=== PATIENT | female | born 1960 | race Two or more races ===

== ENCOUNTER 2018-09-14 16:25 | Emergency (ER) | payer MEDICARE ==
[~2018-09-14] VITALS: Ht 167.6 cm; Wt 81.6 kg
[~2018-09-14 16:25] MED LIST: CHL4PW PO; ENO40SY SC; FENT25DI2 TD; FENT50DI2 TD; FERR1TAB12 PO; HYDR4TAB21 PO; LEVO100T8 PO; PANT40TA2 PO; QUE100T PO; SUCR1SUS10 PO; SULF500T37 PO; TRAZ50T PO; VALS160T43 PO; VENL150C2 PO; [UNRECOGNIZED DRUG - CODE] PO
[2018-09-14 17:09] LABS: Hemoglobin 9.6 g/dL (12.2-16.2)
[2018-09-14 17:12] LABS: Mean Corpuscular Hemoglobin 24.1 pg (28.0-32.0); Mean Corpuscular Hgb Conc. 30.1 g/dL (32.0-36.0); Mean Corpuscular Volume 80.1 fL (80.0-100.0); Platelet Count (auto) 253 10^3/uL (140-450); Red Blood Cells 3.99 10^6/uL (4.0-5.20)
[2018-09-14 17:28] LABS: Albumin 3.8 g/dL (3.4-5.0); Calcium 8.6 mg/dL (8.5-10.1); Potassium 4.4 mmol/L (3.5-5.1)
[2018-09-14 17:30] LABS: BUN/Creatinine Ratio 11.1; Bilirubin, Total 1.4 mg/dL (0.2-1.0); Total Protein 8.2 g/dL (6.4-8.2)
[2018-09-14 17:32] LABS: Red Cell Distribution Width 26.8 % (11.8-14.3)
[2018-09-14 17:33] LABS: Band Neutrophils % (manual) 0; Basophils % (manual) 0 (0.0-2.0); Blast Cells 0; Eosinophils % (manual) 0 (0-7); Metamyelocytes % 0; Myelocytes % 0; Promyelocytes % 0; Reactive Lymphocytes 0
[2018-09-14] MEDS ORDERED: SODIUM CHLORIDE 0.9% 1,000 ML IV ONE ×2 (17:35)
[2018-09-14 17:38] LABS: Lymphocytes % (manual) 28 (10.0-50.0); Monocytes % (manual) 9 (0-12)
[2018-09-14] MEDS ORDERED: THIAMINE 100mg/ml INJ (200mg/2ml VIAL) IV ONE (17:45)
[2018-09-14] MEDS ORDERED: chlordiazePOXIDE HCL 5 MG CAP PO ONE (19:30)
[2018-09-15] MEDS ORDERED: LORazepam 0.5 MG TAB PO ONE ×2 (01:15→21:30)
[2018-09-15] MEDS ORDERED: chlordiazePOXIDE HCL 25 MG CAP PO SCH ×2 (07:45→10:00)
[2018-09-15] MEDS: OLANZapine 5 MG TAB PO PRN ×2 (08:06→14:40)
[2018-09-15] MEDS ORDERED: PANTOPRAZOLE 40 MG TAB PO ONE (09:45)
[2018-09-15] MEDS ORDERED: IBUPROFEN 600 MG TAB PO ONE (09:45)
[2018-09-15 15:55] LABS: Alcohol, Urine < 3.0 mg/dL (0-5); Amphetamine Screen, Urine NEGATIVE (NEGATIVE); Barbiturate Scree,Urine NEGATIVE (NEGATIVE); Benzodiazephine Screen, Urine NEGATIVE (NEGATIVE); Cannabinoid Screen, Urine NEGATIVE (NEGATIVE); Cocaine Screen, Urine NEGATIVE (NEGATIVE); Opiate Scree,Urine NEGATIVE (NEGATIVE); Phencyclidine Screen, Urine NEGATIVE (NEGATIVE)
[2018-09-15 15:56] LABS: Urine Bacteria FEW /hpf (None Seen); Urine Blood Negative /uL (Negative); Urine Specific Gravity 1.006 (1.001-1.035); Urine WBC 16 /hpf (0 - 5)
[2018-09-16 06:55] VITALS: BP 142/59
[2018-09-16] MEDS ORDERED: chlordiazePOXIDE HCL 25 MG CAP PO SCH (10:00)
[2018-09-17] MEDS ORDERED: chlordiazePOXIDE HCL 25 MG CAP PO SCH (10:00)
[2018-09-18] MEDS ORDERED: chlordiazePOXIDE HCL 25 MG CAP PO SCH (07:00)
== END 2018-09-16 07:07 | disposition short-term general hospital (02) ==
LOC: EDBD 16:25 → ER 16:31 → MERGE 16:31 → ER 09-16 07:07
DX: F10.129 Alcohol abuse with intoxication, unspecified (principal); F41.9 Anxiety disorder, unspecified; F32.9 Major depressive disorder, single episode, unspecified; E11.9 Type 2 diabetes mellitus without complications; I10 Essential (primary) hypertension; Y90.8 Blood alcohol level of 240 mg/100 ml or more
CPT/HCPCS: 36415; 71045; 80053; 80307; 80320; 81001; 82962; 85007; 85027; 96374; 99284; J3411; J7030

== ENCOUNTER 2018-12-01 22:55 | Inpatient (IN) | payer MEDICARE ==
[~2018-12-01] VITALS: Ht 170.2 cm; Wt 110.2 kg
[2018-12-01] MEDS ORDERED: NOREPINEPHRINE 8 MG/250ML KIT 250 ML IV ONE (23:31)
[2018-12-01 23:48] LABS: Basophils # (auto) 0 uL; Basophils % (auto) 0.1 % (0.0-2.0); Eosinophils # (auto) 0 uL; Hematocrit 25.9 % (36.0-46.0); Hemoglobin 8.5 g/dL (12.2-16.2); Lymphocytes # (auto) 0.3 uL; Lymphocytes % (auto) 1.7 % (10.0-50.0); Mean Corpuscular Hemoglobin 29.7 pg (28.0-32.0); Mean Corpuscular Hgb Conc. 32.8 g/dL (32.0-36.0); Mean Corpuscular Volume 90.6 fL (80.0-100.0); Monocytes # (auto) 0.2 uL; Monocytes % (auto) 0.9 % (0.0-12.0); Neutrophils # (auto) 19.4 uL; Neutrophils % (auto) 97.3 % (37.0-80.0); Platelet Count (auto) 281 10^3/uL (140-450); Red Blood Cells 2.86 10^6/uL (4.0-5.20)
[2018-12-01 23:49] LABS: Red Cell Distribution Width 25.7 % (11.8-14.3)
[2018-12-02 00:05] LABS: Albumin 2.3 g/dL (3.4-5.0); Amylase 73 U/L (25-115); Anion Gap 14 (5-15); Blood Urea Nitrogen 13 mg/dL (7-18); Carbon Dioxide 22 mmol/L (21-32); Chloride 103 mmol/L (98-107); GFR African American 24 mL/min; GFR Non-African American 20 mL/min; Glucose 90 mg/dL (74-106); Lipase 66 U/L (73-393); Sodium 139 mmol/L (136-145)
[2018-12-02 00:07] LABS: Potassium 2.3 mmol/L (3.5-5.1)
[2018-12-02 00:10] LABS: Alanine Aminotransferase 9 U/L (13-56); Alkaline Phosphatase 123 U/L (45-117); Aspartate Aminotransferase 13 U/L (15-37); Bilirubin, Total 0.7 mg/dL (0.2-1.0); Total Protein 6.5 g/dL (6.4-8.2)
[2018-12-02] MEDS ORDERED: NOREPINEPHRINE 8 MG/250ML KIT 250 ML IV SCH (00:30)
[2018-12-02] MEDS ORDERED: SODIUM CHLORIDE 0.9% 1,000 ML IV SCH ×2 (00:30→06:00)
[2018-12-02] MEDS ORDERED: POTASSIUM CHL 20 Meq TABLET PO ONE ×2 (00:30→02:00)
[2018-12-02 01:59] LABS: Urine Bacteria FEW /hpf (None Seen); Urine Blood Negative /uL (Negative); Urine Hyaline Cast MANY /lpf (0 - 2); Urine Specific Gravity 1.014 (1.001-1.035); Urine WBC 5 /hpf (0 - 5)
[2018-12-02] MEDS ORDERED: cefTRIAXone 1GM/50ML D5W 50 ML IV ONE (02:15)
[2018-12-02] MEDS ORDERED: SODIUM CHLORIDE 0.9% 2,300 ML IV ONE (02:15)
[2018-12-02] MEDS ORDERED: VANCOMYCIN 1GM/250ML 250 ML IV ONE (02:15)
[2018-12-02] MEDS ORDERED: ONDANSETRON HCL 4 MG/2 ML VIAL IV ONE (02:45)
[2018-12-02] MEDS ORDERED: HYDROmorphone HCL 2 MG/ML VL IV ONE (02:45)
[2018-12-02] MEDS: POTASSIUM CHL 20MEQ/100ML 100 ML IV SCH ×2 (03:04→04:52)
[2018-12-02] MEDS ORDERED: ONDANSETRON HCL 4 MG/2 ML VIAL IV PRN ×2 (05:15→13:15)
[2018-12-02] MEDS ORDERED: MORPHINE SULF INJ 2 MG/ML SYRINGE 1ML IV PRN (05:15)
[2018-12-02] MEDS ORDERED: VANCOMYCIN PER PHARMACY 0 MG IV SCH (05:15)
[2018-12-02] MEDS ORDERED: NITROGLYCERIN 0.4 MG SL TAB SL PRN (05:15)
[2018-12-02] MEDS ORDERED: TEMAZEPAM 15 MG CAP PO PRN (05:15)
[2018-12-02] MEDS ORDERED: ACETAMINOPHEN 325 MG TAB PO PRN (05:15)
[2018-12-02] MEDS ORDERED: ALBUMIN 5% 250 ML IV ONE (06:00)
[2018-12-02 06:27] LABS: INR 1.16 (0.9-1.15); Partial Thromboplastin Time 33.6 sec (23.64-32.05)
[2018-12-02 06:34] LABS: BUN/Creatinine Ratio 6.7; Calcium 6.1 mg/dL (8.5-10.1); Potassium 3.3 mmol/L (3.5-5.1)
[2018-12-02] MEDS: LEVOTHYROXINE SODIUM 100 MCG TAB PO SCH (06:53)
[2018-12-02] MEDS: PIPERACILLIN-TAZOB 2.25GM 50 ML IV SCH ×4 (06:53→23:27)
[2018-12-02] MEDS: SODIUM CHLORIDE 0.9% 1,000 ML IV SCH (06:55)
[2018-12-02] MEDS ORDERED: HYDROcodone-ACET 5/325MG TAB PO ONE (08:30)
[2018-12-02] MEDS: PANTOPRAZOLE 40 MG TAB PO SCH (10:39)
[2018-12-02] MEDS: APIXABAN 5 MG TAB PO SCH ×2 (13:50→21:21)
--- NOTE | 2018-12-02 16:05 | NUR ---
Telemetry admit from ER DORIE MCKEON admitted to Telemetry unit after SBAR received. Patient oriented to Abril Mccarty, primary RN, unit, room, bed, and unit policies regarding patient care and visiting hours. Patient now on continuous telemetry monitoring, tele box # 69 and telemetry reading on arrival to unit is sinus rhythm at 89. Respirations are even and unlabored on RA. Patient weighed by bedscale and encouraged to call if they need something. Bed locked in lowest position, side rails up x2, call light within reach. Mercado freely draining to gravity. All questions and concerns addressed, patient verbalized understanding.
[2018-12-02] MEDS: HYDROmorphone HCL 2 MG/ML VL IV PRN ×2 (16:12→22:43)
[2018-12-02] MEDS ORDERED: LORA1TAB12 PO (16:37)
[2018-12-02] MEDS ORDERED: APIX5TAB PO (16:37)
[2018-12-02] MEDS ORDERED: FAM20T PO (16:37)
[2018-12-02] MEDS ORDERED: FOLITAB22 PO (16:37)
[2018-12-02] MEDS ORDERED: VENL-192 PO (16:37)
[2018-12-02] MEDS ORDERED: QUET200T30 PO (16:37)
[2018-12-02] MEDS ORDERED: THIA100T10 PO (16:37)
[2018-12-02] MEDS ORDERED: LEVO500T21 PO (16:37)
--- NOTE | 2018-12-02 17:00 | NUR ---
Patient provided with toilet hat and specimen cup for stool sample, instructed to call once sample is collected, patient verbalized understanding.
[2018-12-02 17:16] VITALS: BP 128/69
[2018-12-02 17:32] VITALS: BP 125/63
--- NOTE | 2018-12-02 18:36 | NUR ---
PATIENT ROUNDS PATIENT RESTING IN BED WATCHING TELEVISION, NO S/S OF DISTRESS. NO PAIN NOTED AT THIS TIME. CARE WILL BE ENDORSED TO ACCOUNT SUPPORT ANALYST RN.
--- NOTE | 2018-12-02 19:20 | NUR ---
Opening Shift Note Report received from day shift RN. Assumed care of patient. Patient awake and alert x4. No S/S of distress/SOB noted and denies pain at this time. Mercado in place, hung below bladder and draining freely. Dialysis access to right upper chest with dressing clean, dry, and intact. Bed locked and left in the lowest position, call light left within reach. Instructed on POC and to call for assist PRN, will continue to monitor for changes Q1hr and PRN.
[2018-12-02] MEDS ORDERED: APIXABAN 5 MG TAB PO SCH (22:00)
[2018-12-02 22:16] VITALS: BP 104/56
[2018-12-03] VITALS (18 sets, daily range): BP systolic 94–155; BP diastolic 44–86
[2018-12-03] MEDS: SODIUM CHLORIDE 0.9% 1,000 ML IV SCH ×2 (01:00→17:20)
[2018-12-03] MEDS: HYDROmorphone HCL 2 MG/ML VL IV PRN ×3 (05:39→20:33)
[2018-12-03] MEDS: LEVOTHYROXINE SODIUM 100 MCG TAB PO SCH (05:39)
[2018-12-03] MEDS: PIPERACILLIN-TAZOB 2.25GM 50 ML IV SCH ×3 (05:39→18:01)
[2018-12-03 06:33] LABS: Potassium 3.2 mmol/L (3.5-5.1)
[2018-12-03 06:34] LABS: Eosinophils # (auto) 0.1 uL; Mean Corpuscular Hemoglobin 30.9 pg (28.0-32.0); Monocytes # (auto) 0.5 uL; Red Blood Cells 2.17 10^6/uL (4.0-5.20)
[2018-12-03 06:44] LABS: Basophils # (auto) 0.1 uL; Basophils % (auto) 0.5 % (0.0-2.0); Hematocrit 19.7 % (36.0-46.0); Lymphocytes # (auto) 0.5 uL; Mean Corpuscular Volume 90.8 fL (80.0-100.0); Monocytes % (auto) 4.4 % (0.0-12.0); Neutrophils # (auto) 9.7 uL; Neutrophils % (auto) 89.1 % (37.0-80.0); Platelet Count (auto) 273 10^3/uL (140-450); White Blood Cell 10.8 10^3/uL (4.4-10.8)
[2018-12-03 06:45] LABS: Albumin 2.1 g/dL (3.4-5.0); Bilirubin, Total 0.5 mg/dL (0.2-1.0); Calcium 6.9 mg/dL (8.5-10.1); Total Protein 5.4 g/dL (6.4-8.2)
[2018-12-03 07:00] LABS: Hemoglobin 6.7 g/dL (12.2-16.2)
[2018-12-03 07:01] LABS: Red Cell Distribution Width 26.5 % (11.8-14.3)
--- NOTE | 2018-12-03 07:10 | NUR ---
PATIENT ADMITTED ON 12/02. MISSED SATURDAY DIALYSIS ON 12/02. HOSPITAL LIST PAGED FOR CRITICAL VALUE OF HEMOGLOBIN 7.1. AWAITING RETURN CALL
--- NOTE | 2018-12-03 07:18 | NUR ---
[facility] RETURNED PAGE AND CRITICAL VALUE OF HEMOGLOBIN 7.1 REPORTED. ORDERS RECEIVED TO REPEAT H AND H IN 4 HOURS
[2018-12-03] MEDS: PANTOPRAZOLE 40 MG TAB PO SCH (10:29)
[2018-12-03] MEDS: APIXABAN 5 MG TAB PO SCH ×2 (10:29→21:34)
[2018-12-03] MEDS ORDERED: VANCOMYCIN 1GM/250ML 250 ML IV ONE (15:00)
[2018-12-03] MEDS ORDERED: SODIUM CHL 0.9% 1000 ML BAG XX ONE (16:00)
--- NOTE | 2018-12-03 19:10 | NUR ---
Opening Shift Note Report received from day shift RN. Assumed care of patient. Patient awake and alert x4. No S/S of distress/SOB noted and denies pain at this time. Mercado in place, hung below bladder and draining freely. Dialysis nurse currently at bedside. Bed locked and left in the lowest position, call light left within reach. Instructed on POC and to call for assist PRN, will continue to monitor for changes Q1hr and PRN.
--- NOTE | 2018-12-03 19:12 | NUR ---
Dialysis complete Report received from dialysis nurse. 2 liters of fluid removed. Post treatment VS 126/69, Hr 103. Dressing to dialysis access on right upper chest clean, dry, and intact. Patient tolerated treatment well and no complaints per report.
[2018-12-03] MEDS ORDERED: EPOETIN ALFA 10,000 UNIT/1 ML VIAL SC ONE (21:00)
--- NOTE | 2018-12-03 22:35 | NUR ---
NEW IV INSERTION DURING BEGINNING OF BLOOD TRANSFUSION, IV WAS LEAKING. NEW IV STARTED, 22 GAUGE ON THE LEFT UPPER ARM. IV SECURED AND NO TRAUMA NOTED TO THE SITE. OLD IV REMOVED, CATHETER INTACT. PATIENT TOLERATED WELL.
[2018-12-04 00:27] VITALS: BP 114/57
[2018-12-04] MEDS: PIPERACILLIN-TAZOB 2.25GM 50 ML IV SCH ×2 (00:36→05:51)
--- NOTE | 2018-12-04 00:37 | NUR ---
BLOOD TRANSFUSION COMPLETE 1 UNIT RBCS TRANSFUSED. NO S/S OF SOB AND NO ADVERSE REACTIONS TO BLOOD PRODUCTS RECEIVED. PATIENT TOLERATED WELL.
[2018-12-04] MEDS: HYDROmorphone HCL 2 MG/ML VL IV PRN ×2 (04:15→12:03)
[2018-12-04 05:05] VITALS: BP 110/59
[2018-12-04] MEDS: LEVOTHYROXINE SODIUM 100 MCG TAB PO SCH (05:52)
[2018-12-04 06:00] LABS: Basophils # (auto) 0.1 uL; Basophils % (auto) 0.6 % (0.0-2.0); Eosinophils # (auto) 0.1 uL; Eosinophils % (auto) 0.8 % (0.0-7.0); Hematocrit 28.8 % (36.0-46.0); Hemoglobin 9.4 g/dL (12.2-16.2); Lymphocytes # (auto) 0.6 uL; Lymphocytes % (auto) 5.1 % (10.0-50.0); Mean Corpuscular Hemoglobin 29.5 pg (28.0-32.0); Mean Corpuscular Hgb Conc. 32.8 g/dL (32.0-36.0); Mean Corpuscular Volume 90.1 fL (80.0-100.0); Monocytes # (auto) 0.6 uL; Monocytes % (auto) 5.6 % (0.0-12.0); Neutrophils # (auto) 9.8 uL; Neutrophils % (auto) 87.9 % (37.0-80.0); Platelet Count (auto) 248 10^3/uL (140-450); White Blood Cell 11.1 10^3/uL (4.4-10.8)
[2018-12-04 06:30] LABS: Albumin 2.2 g/dL (3.4-5.0); BUN/Creatinine Ratio 3.5; Bilirubin, Total 1.9 mg/dL (0.2-1.0); Total Protein 6.2 g/dL (6.4-8.2)
[2018-12-04 08:00] VITALS: BP 110/59
--- NOTE | 2018-12-04 08:00 | NUR ---
PATIENT RECEIVED 2 UNITS OF PRBC'S ON 12/03/18. PATIENT HEMOGLOBIN 9.4 UP FROM 6.7. ALSO RECEIVED DIALYSIS WITH REMOVAL OF 2 LTRS.
[2018-12-04] MEDS: SODIUM CHLORIDE 0.9% 1,000 ML IV SCH (08:45)
[2018-12-04 08:49] VITALS: BP 110/59
[2018-12-04 09:00] VITALS: BP 129/66
[2018-12-04] MEDS ORDERED: POTASSIUM CHL 20 Meq TABLET PO ONE (09:15)
[2018-12-04] MEDS: APIXABAN 5 MG TAB PO SCH (09:42)
[2018-12-04] MEDS: PANTOPRAZOLE 40 MG TAB PO SCH (09:42)
[2018-12-04 13:00] VITALS: BP 138/74
--- NOTE | 2018-12-04 14:30 | NUR ---
PATIENT DISCHARGED HOME WITH FAMILY. ALL IV ACCESS DISCONTINUED. TELEMETRY BOX REMOVED AND RETURNED TO TELEMETRY DEPARTMENT. ALL DISCHARGE INSTRUCTIONS GIVEN. ALL DISCHARGE PAPERWORK SIGNED.
[2018-12-05] MEDS ORDERED: LEVOFLOXACIN 500 MG TAB PO SCH (10:00)
[2019-01-01] MEDS ORDERED: FLUC200T35 PO (15:15)
[2019-01-01] MEDS ORDERED: PANT40TA2 PO (15:15)
== END 2018-12-04 14:30 | disposition home or self-care (01) | DRG 871 ==
LOC: EDBD 22:55 → ER 22:58 → TELE 22:59 → TELE-WESTW 12-02 15:47
PROVIDERS: ADMIT Nurse Practitioner; ATTEND Family Medicine
PROC: 5A1D70Z Performance of Urinary Filtration, Intermittent, Less than 6 Hours Per Day (ICD-10-PCS; principal; 2018-12-03)
PROC: 30233N1 Transfusion of Nonautologous Red Blood Cells into Peripheral Vein, Percutaneous Approach (ICD-10-PCS; 2018-12-03)
DX: A41.9 Sepsis, unspecified organism (principal); N18.6 End stage renal disease; I13.2 Hypertensive heart and chronic kidney disease with heart failure and with stage 5 chronic kidney disease, or end stage renal disease; N39.0 Urinary tract infection, site not specified; E11.22 Type 2 diabetes mellitus with diabetic chronic kidney disease; E86.0 Dehydration; E87.6 Hypokalemia; J44.9 Chronic obstructive pulmonary disease, unspecified; K21.9 Gastro-esophageal reflux disease without esophagitis; F31.9 Bipolar disorder, unspecified; M43.16 Spondylolisthesis, lumbar region; E03.9 Hypothyroidism, unspecified; I95.9 Hypotension, unspecified; D63.8 Anemia in other chronic diseases classified elsewhere; K52.9 Noninfective gastroenteritis and colitis, unspecified; I50.9 Heart failure, unspecified; Z98.84 Bariatric surgery status; Z99.2 Dependence on renal dialysis; Z90.49 Acquired absence of other specified parts of digestive tract; Z86.711 Personal history of pulmonary embolism; Z87.442 Personal history of urinary calculi; Z90.710 Acquired absence of both cervix and uterus; Z85.528 Personal history of other malignant neoplasm of kidney; Z88.6 Allergy status to analgesic agent; Z88.1 Allergy status to other antibiotic agents; Z88.5 Allergy status to narcotic agent; Z88.2 Allergy status to sulfonamides; Z88.8 Allergy status to other drugs, medicaments and biological substances; Z90.12 Acquired absence of left breast and nipple; Z85.3 Personal history of malignant neoplasm of breast; Z90.5 Acquired absence of kidney; Z86.718 Personal history of other venous thrombosis and embolism; Z79.01 Long term (current) use of anticoagulants; Z82.3 Family history of stroke; Z82.49 Family history of ischemic heart disease and other diseases of the circulatory system
CPT/HCPCS: 36415; 36430; 71045; 74176; 80048; 80053; 80202; 80320; 81001; 82150; 83605; 83690; 84484; 84702; 85025; 85610; 85730; 86850; 86900; 86901; 86920; 87040; 87045; 87081; 87427; 87493; 90935; 93005; 96361; 96365; 96367; 96375; G0378; J0696; J0885; J1642; J2405; J2543; J3480

== ENCOUNTER 2018-12-17 05:35 | Inpatient (IN) | payer MEDICARE ==
[~2018-12-17] VITALS: Ht 157.5 cm; Wt 70.5 kg
[~2018-12-17 05:35] MED LIST changes: +APIX5TAB PO; +FAM20T PO; -FENT25DI2 TD; -FENT50DI2 TD; -FERR1TAB12 PO; +FOLITAB22 PO; -HYDR4TAB21 PO; -LEVO100T8 PO; +LEVO500T21 PO; +LORA1TAB12 PO; -QUE100T PO; +QUET200T30 PO; -SUCR1SUS10 PO; +THIA100T10 PO; -TRAZ50T PO; -VALS160T43 PO; +VENL-192 PO; -VENL150C2 PO; -[UNRECOGNIZED DRUG - CODE] PO
[2018-12-17 08:16] LABS: Urine Bacteria FEW /hpf (None Seen); Urine Blood Negative /uL (Negative); Urine Hyaline Cast MOD /lpf (0 - 2); Urine Specific Gravity 1.016 (1.001-1.035); Urine WBC 27 /hpf (0 - 5)
[2018-12-17 08:19] LABS: Basophils # (auto) 0 uL; Basophils % (auto) 0.2 % (0.0-2.0); Eosinophils # (auto) 0 uL; Lymphocytes # (auto) 0.4 uL
[2018-12-17 08:22] LABS: INR 1.04 (0.9-1.15); Partial Thromboplastin Time 29.9 sec (23.64-32.05)
[2018-12-17 08:28] LABS: Hematocrit 37.5 % (36.0-46.0); Hemoglobin 12.6 g/dL (12.2-16.2); Lymphocytes % (auto) 3.6 % (10.0-50.0); Mean Corpuscular Hemoglobin 32.5 pg (28.0-32.0); Mean Corpuscular Hgb Conc. 33.6 g/dL (32.0-36.0); Mean Corpuscular Volume 96.8 fL (80.0-100.0); Monocytes # (auto) 0.5 uL; Monocytes % (auto) 4.1 % (0.0-12.0); Neutrophils # (auto) 10.4 uL; Neutrophils % (auto) 92.1 % (37.0-80.0); Nucleated Red Blood Cells % 0.1 %; Platelet Count (auto) 249 10^3/uL (140-450); Red Blood Cells 3.87 10^6/uL (4.0-5.20); White Blood Cell 11.3 10^3/uL (4.4-10.8)
[2018-12-17 08:33] LABS: Alcohol, Urine < 3.0 mg/dL (0-5); Amphetamine Screen, Urine NEGATIVE (NEGATIVE); Barbiturate Scree,Urine NEGATIVE (NEGATIVE); Benzodiazephine Screen, Urine NEGATIVE (NEGATIVE); Cannabinoid Screen, Urine NEGATIVE (NEGATIVE); Cocaine Screen, Urine NEGATIVE (NEGATIVE); Opiate Scree,Urine NEGATIVE (NEGATIVE); Phencyclidine Screen, Urine NEGATIVE (NEGATIVE)
[2018-12-17 08:38] LABS: Chloride 103 mmol/L (98-107); Sodium 139 mmol/L (136-145)
[2018-12-17 08:47] LABS: Alanine Aminotransferase 11 U/L (13-56); Albumin 2.9 g/dL (3.4-5.0); Alkaline Phosphatase 115 U/L (45-117); Anion Gap 11 (5-15); Aspartate Aminotransferase 13 U/L (15-37); BUN/Creatinine Ratio 8.7; Bilirubin, Total 1.4 mg/dL (0.2-1.0); Blood Alcohol < 3.0 mg/dL (0-5); Blood Urea Nitrogen 12 mg/dL (7-18); Calcium 7.6 mg/dL (8.5-10.1); Carbon Dioxide 25 mmol/L (21-32); GFR African American 51 mL/min; GFR Non-African American 42 mL/min; Glucose 102 mg/dL (74-106); Magnesium 1.5 mg/dL (1.6-2.6); Total Protein 7.7 g/dL (6.4-8.2)
[2018-12-17] MEDS ORDERED: PROMETHAZINE HCL 25 MG/ML 1ML IV ONE (09:00)
[2018-12-17] MEDS ORDERED: NALBUPHINE HCL 10 MG/1ml INJECTION IV ONE ×2 (09:00→15:30)
[2018-12-17 09:11] LABS: Salicylate < 1.7 mg/dL (2.8-20.0)
[2018-12-17 09:15] LABS: Acetaminophen < 2.0 ug/mL (10-30)
[2018-12-17] MEDS ORDERED: VANCOMYCIN 1GM/250ML 250 ML IV ONE (10:00)
[2018-12-17] MEDS ORDERED: POTASSIUM EFFERVESENT TAB 25 MEQ PO ONE (10:00)
[2018-12-17] MEDS: MAGNESIUM SULFATE 1GM/100ML 100 ML IV SCH ×2 (10:12→11:46)
[2018-12-17] MEDS ORDERED: NITROGLYCERIN 0.4 MG SL TAB SL PRN (17:00)
[2018-12-17] MEDS ORDERED: VANCOMYCIN PER PHARMACY 0 MG IV SCH (17:00)
[2018-12-17] MEDS ORDERED: ACETAMINOPHEN 500 MG TAB PO PRN (17:00)
[2018-12-17] MEDS ORDERED: MORPHINE SULF INJ 2 MG/ML SYRINGE 1ML IV PRN ×2 (17:00)
[2018-12-17] MEDS ORDERED: HYDROcodone-ACET 5/325MG TAB PO PRN (17:00)
[2018-12-17] MEDS ORDERED: PIPERACILLIN-TAZOB 0.75 GM in D5W 5% 50 ML IV SCH (17:30)
--- NOTE | 2018-12-17 18:20 | NUR ---
PATIENT ARRIVED TO FLOOR. RECIEVED REPORT FROM ANDREI TINAJERO. PATIENT ORIENTED TO ANDREI FATIMA. ORIENTED TO HOSPITAL ROOM AND USE OF CALL LIGHT. SEIZURE PRECAUTIONS IN PLACE. TELE MONITOR IN PLACE. PATIENT IN NO S/S OF DISTRESS AT THIS TIME. NO TEMPERATURE NOTED PER VITAL SIGNS. PATIENT UPDATED ON POC. ALL QUESTIONS ANSWERED. BED IN LOWEST LOCKED POSITION WITH CALL LIGHT WITHIN REACH. WILL SEND MRSA SWAB PER HOSPITAL PROTOCOL.
[2018-12-17 18:30] VITALS: BP 100/62
--- NOTE | 2018-12-17 19:00 | NUR ---
ENDORSED CARE TO RN NOMI.
[2018-12-17] MEDS: ONDANSETRON HCL 4 MG/2 ML VIAL IV PRN ×2 (19:45→21:27)
--- NOTE | 2018-12-17 20:00 | NUR ---
Opening Shift Note Assumed care of patient, awake and alert. No S/S of distress/SOB and pain is 7/10. Patient allergic to prescribed medications for pain. Will contact hospitalist for new orders. Patient given heat packs to soothe pain at this time. Instructed on POC and to call for assist PRN, will continue to monitor for changes Q1hr and PRN.
--- NOTE | 2018-12-17 20:02 | NUR ---
HOSPITALIST PAGED PATIENT ADMITTED TODAY WITH NORCO AND MORPHINE FOR PAIN. PATIENT STATES THAT THEY ARE ALLERGIC TO MORPHINE AND NORCO. PATIENT STATES THAT THEY NORMALLY TAKE DILAUDID. PATIENT HAS A HISTORY OF CARCINOMA. WILL AWAIT CALL BACK OR ORDERS.
[2018-12-17] MEDS ORDERED: NALBUPHINE HCL 10 MG/1ml INJECTION IV PRN (20:45)
[2018-12-17] MEDS: PIPERACILLIN-TAZOB 2.25GM 50 ML IV SCH (21:27)
[2018-12-17 21:57] VITALS: BP 150/82
[2018-12-18] MEDS: ONDANSETRON HCL 4 MG/2 ML VIAL IV PRN ×2 (02:21→09:40)
--- NOTE | 2018-12-18 05:00 | NUR ---
IV removal IV DC'd with clean sterile technique, catheter fully intact. Pressure dressing applied to site. Patient tolerated well. IV insertion IV access obtained, via clean sterile technique by inserting 22 gauge catheter at LEFT FOREARM after 4 attempt(s). IV secured properly. No trauma to site. Patient tolerated well.
[2018-12-18 05:35] VITALS: BP 126/64
[2018-12-18 08:00] VITALS: BP 135/89
--- NOTE | 2018-12-18 08:37 | NUR ---
NEPHROLOGY CONSULT Dr. Julio at bedside. Patient is advised. Recommend removal of dialysis catheter AGUSTIN, no need for hemodialysis. Will inform hospitalist.
[2018-12-18] MEDS ORDERED: POTASSIUM CHL 20 Meq TABLET PO ONE (08:45)
[2018-12-18 09:11] LABS: Basophils # (auto) 0 uL; Basophils % (auto) 0.8 % (0.0-2.0); Eosinophils # (auto) 0.1 uL; Eosinophils % (auto) 1.1 % (0.0-7.0); Hematocrit 35.9 % (36.0-46.0); Hemoglobin 11.6 g/dL (12.2-16.2); Lymphocytes # (auto) 0.4 uL; Lymphocytes % (auto) 6.6 % (10.0-50.0); Mean Corpuscular Hemoglobin 31.5 pg (28.0-32.0); Mean Corpuscular Hgb Conc. 32.3 g/dL (32.0-36.0); Mean Corpuscular Volume 97.4 fL (80.0-100.0); Monocytes # (auto) 0.5 uL; Neutrophils # (auto) 4.9 uL; Neutrophils % (auto) 83.5 % (37.0-80.0); Platelet Count (auto) 239 10^3/uL (140-450); Red Blood Cells 3.69 10^6/uL (4.0-5.20); White Blood Cell 5.9 10^3/uL (4.4-10.8)
[2018-12-18 09:15] LABS: Red Cell Distribution Width 26.6 % (11.8-14.3)
[2018-12-18 09:31] LABS: BUN/Creatinine Ratio 7.9; Calcium 8.1 mg/dL (8.5-10.1); Potassium 3.1 mmol/L (3.5-5.1)
[2018-12-18] MEDS: PIPERACILLIN-TAZOB 2.25GM 50 ML IV SCH ×2 (09:52→21:43)
[2018-12-18] MEDS: FAMOTIDINE 20 MG TAB PO SCH (09:54)
--- NOTE | 2018-12-18 12:30 | NUR ---
CARDIOLOGY CONSULT Dr. Mendoza at bedside, patient is advised. Orders received.
[2018-12-18] MEDS: HYDROmorphone HCL 2 MG/ML VL IV PRN ×2 (12:46→19:48)
[2018-12-18 13:00] VITALS: BP 136/73
[2018-12-18] MEDS ORDERED: LIDOCAINE 2%HCL (LOCAL ANESTH.) INJ 20ML MDV ONE (13:24)
--- NOTE | 2018-12-18 13:30 | NUR ---
Dialysis catheter removed at Radiology by Dr. Granados. Patient back to bed via wheelchair.
--- NOTE | 2018-12-18 14:01 | NUR ---
NUTRITION CONSULT/ASSESSMENT NOTES Please refer to link notes of nutrition screen form filed under the intervention section of the plan of care for further details. Est. Needs: 1400 kcal to 1750 kcal (20-25 kcal/kgBW), 56 gms to 70 gms pro (0.8-1.0 gms/kgBW). Will continue to monitor pertinent labs and reassess nutrient need prn Thank you for this consult. Addendum: 12/18/18 at [address] Amended: Links added.
[2018-12-18 17:00] VITALS: BP 140/89
--- NOTE | 2018-12-18 20:00 | NUR ---
Opening Shift Note Assumed care of patient, awake and alert. No S/S of distress/SOB or pain. Instructed on POC and to call for assist PRN, will continue to monitor for changes Q1hr and PRN.
--- NOTE | 2018-12-18 22:10 | NUR ---
HOSPITALIST PAGED RECEIVED CALL FROM LAB REGARDING BLOOD CULTURE. PATIENT'S BLOOD CULTURE SHOWING GRAM POSITIVE COCCI IN CHAINS. HOSPITALIST PAGED TO INFORM. WILL AWAIT CALL BACK.
[2018-12-18 22:28] VITALS: BP 111/67
[2018-12-18] MEDS ORDERED: VANCOMYCIN PER PHARMACY 0 MG IV SCH (23:00)
[2018-12-18] MEDS ORDERED: VANCOMYCIN 1GM/250ML 250 ML IV SCH (23:00)
[2018-12-19] MEDS: HYDROmorphone HCL 2 MG/ML VL IV PRN ×4 (04:21→23:24)
[2018-12-19] MEDS: ONDANSETRON HCL 4 MG/2 ML VIAL IV PRN ×4 (04:21→23:23)
[2018-12-19 05:30] VITALS: BP 111/64
--- NOTE | 2018-12-19 08:00 | NUR ---
Opening Shift Note Assumed care of patient, awake and alert. No S/S of distress/SOB, 6/10 generalized pain. Instructed on POC and to call for assist PRN, will continue to monitor for changes Q1hr and PRN.
[2018-12-19 09:00] VITALS: BP 148/72
[2018-12-19] MEDS: FAMOTIDINE 20 MG TAB PO SCH (09:33)
[2018-12-19] MEDS: PIPERACILLIN-TAZOB 2.25GM 50 ML IV SCH ×2 (09:36→21:38)
--- NOTE | 2018-12-19 10:00 | NUR ---
Hospitalist rounds Dr. Leslie at bedside. Patient was advised. Continue care and treatments with IV antibiotics.
[2018-12-19] MEDS ORDERED: POTASSIUM CHL 20 Meq TABLET PO ONE (11:00)
[2018-12-19] MEDS ORDERED: QUEtiapine FUMARATE 100 MG TAB PO SCH (11:15)
[2018-12-19 13:00] VITALS: BP 155/84
--- NOTE | 2018-12-19 14:00 | NUR ---
IV removal IV infiltrated on the left forearm. IV DC'd with clean sterile technique, catheter fully intact. Pressure dressing applied to site. Patient tolerated well.
[2018-12-19] MEDS: LORazepam 0.5 MG TAB PO PRN (15:27)
--- NOTE | 2018-12-19 16:28 | NUR ---
IV insertion IV access obtained, via clean sterile technique by inserting 22 gauge catheter at right forearm after one attempt. IV secured properly. No trauma to site. Patient tolerated well.
[2018-12-19 17:33] VITALS: BP 143/83
[2018-12-19] MEDS ORDERED: VANCOMYCIN 1GM/250ML 250 ML IV ONE (18:00)
[2018-12-19] MEDS: QUEtiapine FUMARATE 100 MG TAB PO SCH (21:29)
[2018-12-19 21:30] VITALS: BP 128/72
[2018-12-20 04:51] VITALS: BP 105/56
[2018-12-20] MEDS: ONDANSETRON HCL 4 MG/2 ML VIAL IV PRN ×3 (06:12→18:38)
[2018-12-20] MEDS: HYDROmorphone HCL 2 MG/ML VL IV PRN ×3 (06:12→18:39)
[2018-12-20 09:00] VITALS: BP 115/68
--- NOTE | 2018-12-20 10:00 | NUR ---
Patient is for mid-line insertion. tree trimming supervisor made aware.
[2018-12-20] MEDS: FAMOTIDINE 20 MG TAB PO SCH (10:13)
[2018-12-20] MEDS: THIAMINE HCL 100 MG TAB PO SCH (10:13)
[2018-12-20] MEDS: VENLAFAXINE HCL 37.5MG TABLET PO SCH (10:13)
[2018-12-20] MEDS: PIPERACILLIN-TAZOB 2.25GM 50 ML IV SCH ×2 (10:14→21:28)
[2018-12-20 12:27] VITALS: BP 129/73
[2018-12-20] MEDS: LORazepam 0.5 MG TAB PO PRN (12:35)
[2018-12-20 17:00] VITALS: BP 141/80
[2018-12-20] MEDS ORDERED: VANCOMYCIN 500 MG in D5W 5% 100 ML IV ONE (18:00)
[2018-12-20] MEDS: QUEtiapine FUMARATE 100 MG TAB PO SCH (21:28)
[2018-12-20 21:29] VITALS: BP 120/58
[2018-12-21] MEDS: HYDROmorphone HCL 2 MG/ML VL IV PRN ×4 (04:55→23:09)
[2018-12-21 05:19] VITALS: BP 122/63
[2018-12-21 06:07] LABS: Basophils # (auto) 0 uL; Basophils % (auto) 1.7 % (0.0-2.0); Eosinophils # (auto) 0.1 uL; Hematocrit 30.7 % (36.0-46.0); Hemoglobin 10.2 g/dL (12.2-16.2); Lymphocytes # (auto) 0.6 uL; Lymphocytes % (auto) 24.1 % (10.0-50.0); Mean Corpuscular Hemoglobin 32.4 pg (28.0-32.0); Mean Corpuscular Hgb Conc. 33.1 g/dL (32.0-36.0); Mean Corpuscular Volume 97.8 fL (80.0-100.0); Monocytes # (auto) 0.3 uL; Monocytes % (auto) 12.5 % (0.0-12.0); Neutrophils # (auto) 1.4 uL; Neutrophils % (auto) 57.7 % (37.0-80.0); Nucleated Red Blood Cells % 0.1 %; Platelet Count (auto) 253 10^3/uL (140-450); Red Blood Cells 3.14 10^6/uL (4.0-5.20); White Blood Cell 2.4 10^3/uL (4.4-10.8)
[2018-12-21 06:18] LABS: Red Cell Distribution Width 25.9 % (11.8-14.3)
[2018-12-21 07:03] LABS: BUN/Creatinine Ratio 5.7
[2018-12-21 07:06] LABS: Potassium 2.6 mmol/L (3.5-5.1)
--- NOTE | 2018-12-21 07:07 | NUR ---
CRITICAL LAB POTASSIUM IS 2.6. HOSPITALIST PAGED.
[2018-12-21] MEDS ORDERED: POTASSIUM CHLORIDE 40 MEQ, LIDOCAINE 1% (LOCAL ANESTH.) 4 ML in SODIUM CHL 0.9% 100 ML IV ONE (07:30)
[2018-12-21] MEDS ORDERED: POTASSIUM CHL 20 Meq TABLET PO ONE (07:30)
--- NOTE | 2018-12-21 07:30 | NUR ---
Received orders from Dianne Mo for critical Potassium-2.6. Will carry out orders.
--- NOTE | 2018-12-21 07:45 | NUR ---
IV removal IV infiltrated on right forearm. IV DC'd with clean sterile technique, catheter fully intact. Pressure dressing applied to site. Patient tolerated well.
--- NOTE | 2018-12-21 07:55 | NUR ---
IV insertion IV access obtained, via clean sterile technique by inserting 20 gauge catheter at left wrist after one attempt. IV secured properly. No trauma to site. Patient tolerated well.
[2018-12-21 09:00] VITALS: BP 118/64
[2018-12-21] MEDS ORDERED: LOPERAMIDE HCL 2 MG CAP PO ONE (10:00)
[2018-12-21] MEDS ORDERED: LOPERAMIDE HCL 2 MG CAP PO PRN (10:00)
[2018-12-21] MEDS: PIPERACILLIN-TAZOB 2.25GM 50 ML IV SCH (10:00)
[2018-12-21] MEDS: FAMOTIDINE 20 MG TAB PO SCH (10:03)
[2018-12-21] MEDS: THIAMINE HCL 100 MG TAB PO SCH (10:03)
[2018-12-21] MEDS: VENLAFAXINE HCL 37.5MG TABLET PO SCH (10:03)
--- NOTE | 2018-12-21 10:50 | NUR ---
Nutrition Follow-up Notes Wt.: 73.7 kg Pt was sleeping with no family by bedside. per pt records pt with sepsis r/t UTI. pt with no distress noted. pt is currently on 2 gm na diet with adequate PO of 75% x 5 per RN doc Est. Needs: 1400 kcal to 1750 kcal (20-25 kcal/kgBW), 56 gms to 70 gms pro (0.8-1.0 gms/kgBW). Will continue to monitor pertinent labs and reassess nutrient need prn Labs: CREAT 1.06 H, ALB 2.9 L, CA 8.0 L. Skin: Kamron 19, low risk skin intact per RN doc GI: Pt had 6 BM 12/20 per bark press operator. PES: Altered nutrition related lab values r/t acute/chronic medical condition aeb hyperglycemia, hypokalemia, hyperchloremia, elev. BUN, Mg hyperbilirubinemia, hypocalcemia and mod hypoalbuminemia Will continue to monitor PO intake, pertinent labs, skin status and weight trends. F/u in 3 to 5 days. Additional Recommendation: 1.) Consider Cardiac, Renal Std. diet. 2.) If Albumin continues trending down, consider Prostat 1 pkt BID.3.) Continue close supervision with meals.4.) Refer to RD for further nutrition educ. and weight monitoring upon discharge. 5.) Continue current plan of care.
[2018-12-21] MEDS: ONDANSETRON HCL 4 MG/2 ML VIAL IV PRN ×3 (11:02→23:09)
[2018-12-21] MEDS: LINEZOLID 600MG/300ML 300 ML IV SCH ×2 (11:03→22:16)
[2018-12-21 13:00] VITALS: BP 128/73
--- NOTE | 2018-12-21 15:20 | NUR ---
Stool sample for C DIFF sent to Lab.
[2018-12-21] MEDS: LORazepam 0.5 MG TAB PO PRN (15:38)
[2018-12-21 17:00] VITALS: BP 139/82
--- NOTE | 2018-12-21 19:15 | NUR ---
OPENING NOTE- NOC SHIFT PATIENT IS ALERT AND ORIENTED X4, ANSWERS IN COMPLETE SENTENCES AND MAKES APPROPRIATE EYE CONTACT. PATIENT IS SITTING UP IN BED WATCHING TELEVISION. BEDSIDE TABLE WITHIN REACH, CALL LIGHT WITHIN REACH; INSTRUCTED PATIENT TO CALL PRN. WILL CONTINUE TO MONITOR Q1H AND PRN.
[2018-12-21 21:44] VITALS: BP 114/72
[2018-12-21] MEDS: QUEtiapine FUMARATE 100 MG TAB PO SCH (22:16)
[2018-12-22 05:07] VITALS: BP 113/65
[2018-12-22] MEDS: ONDANSETRON HCL 4 MG/2 ML VIAL IV PRN ×3 (05:13→17:54)
[2018-12-22] MEDS: HYDROmorphone HCL 2 MG/ML VL IV PRN ×3 (05:13→18:02)
[2018-12-22 06:11] LABS: Basophils # (auto) 0.1 uL; Basophils % (auto) 1.9 % (0.0-2.0); Eosinophils # (auto) 0.1 uL; Eosinophils % (auto) 3.5 % (0.0-7.0); Hemoglobin 10.1 g/dL (12.2-16.2); Lymphocytes # (auto) 0.9 uL; Lymphocytes % (auto) 32.3 % (10.0-50.0); Mean Corpuscular Hgb Conc. 33.6 g/dL (32.0-36.0); Mean Corpuscular Volume 98.2 fL (80.0-100.0); Monocytes # (auto) 0.3 uL; Monocytes % (auto) 9.6 % (0.0-12.0); Neutrophils # (auto) 1.5 uL; Neutrophils % (auto) 52.7 % (37.0-80.0); Platelet Count (auto) 261 10^3/uL (140-450); Red Blood Cells 3.05 10^6/uL (4.0-5.20); White Blood Cell 2.9 10^3/uL (4.4-10.8)
[2018-12-22 06:22] LABS: Albumin 2.6 g/dL (3.4-5.0); BUN/Creatinine Ratio 5.6; Calcium 7.8 mg/dL (8.5-10.1)
[2018-12-22 06:25] LABS: Bilirubin, Total 0.8 mg/dL (0.2-1.0); Total Protein 6.2 g/dL (6.4-8.2)
[2018-12-22 06:37] LABS: Potassium 2.8 mmol/L (3.5-5.1)
[2018-12-22 06:43] LABS: Red Cell Distribution Width 26.5 % (11.8-14.3)
--- NOTE | 2018-12-22 07:10 | NUR ---
HOSPITALIST CALL BACK WITH ORDERS.
--- NOTE | 2018-12-22 07:15 | NUR ---
CLOSING NOTE- NOC SHIFT PATIENT IS ALERT AND ORIENTED. NO S/SX OF DISTRESS OR SOB. ENDORSED PATIENT CARE TO DAY SHIFT NURSE SWATHI ECHEVARRIA IS AWARE OF K+2.8 AND PROVIDER ORDERS FOR 60 MEQ PO ONE TIME.
[2018-12-22] MEDS ORDERED: POTASSIUM CHL 20 Meq TABLET PO ONE (07:30)
--- NOTE | 2018-12-22 07:30 | NUR ---
Opening Shift Note Assumed care of patient, awake, alert and oriented X4. No S/S of distress/SOB or pain. Instructed on POC and to call for assist PRN, fall precautions in place per protocol. Will continue to monitor for changes Q1hr and PRN.
[2018-12-22 08:00] VITALS: BP 125/82
[2018-12-22 09:00] VITALS: BP 125/82
--- NOTE | 2018-12-22 09:38 | NUR ---
Spoke to PICC RN Per Jania RN regarding midline consult, she will see patient today for midline.
[2018-12-22] MEDS: FAMOTIDINE 20 MG TAB PO SCH (09:57)
[2018-12-22] MEDS: VENLAFAXINE HCL 37.5MG TABLET PO SCH (10:00)
[2018-12-22] MEDS: THIAMINE HCL 100 MG TAB PO SCH (10:00)
[2018-12-22] MEDS: LINEZOLID 600MG/300ML 300 ML IV SCH ×2 (10:01→22:41)
[2018-12-22] MEDS: LORazepam 0.5 MG TAB PO PRN ×2 (10:01→20:26)
--- NOTE | 2018-12-22 12:09 | NUR ---
Midline Placement: Patient educated on need for midline placement. All risks and benefits explained and all questions and concerns addresses prior to procedure. 18g/10cm midline inserted via right basilic vein using Ultrasound. Sterile technique utilized. Blood return obtained from lumen and flushed easily with NS using proper technique. Midline secured with saline lock; biodisc and occlusive dressing applied. Primary RN notified. Midline lot #[id number]
[2018-12-22 13:00] VITALS: BP 124/74
--- NOTE | 2018-12-22 15:44 | NUR ---
Assessment Pt is a 58 yr old alert and oriented female. Prior to admit, pt lives with her Liane, who is her emergency contact at [phone]. Pt stated that she was admitted with sepsis but has a history with cancer and Kidney failure. Pt was getting dialysis at the [facility] recently until her supervisor opening and picking recently told her that she had gained kidney function enough to get off of dialysis. Pt is independent with ADL's and pt's sister is going to come stay with them and help with cooking, cleaning and laundry. Pt receives [email or web address] and early halfway income. Pt stated that she has an advanced directive on file. Pt might go home with IV-antibiotics depending on test results. Pt stated that she does not need help setting up transportation. No needs or concerns at this time. Addendum: 12/22/18 at 1552 by YASH SETHI SS Amended: Links added.
[2018-12-22 16:38] VITALS: BP 157/83
--- NOTE | 2018-12-22 19:20 | NUR ---
OPENING NOTE- NOC SHIFT PATIENT IS IN BED, BED IS LOCKED IN LOWEST POSITION. BED RAILS UP X2, HEAD OF BED IS UP >30 DEGREES AND BEDSIDE TABLE WITHIN REACH. CALL LIGHT WITHIN REACH. DISCUSSED POC WITH PATIENT AND INSTRUCTED PATIENT TO CALL PRN; PATIENT VERBALIZED UNDERSTANDING. WILL CONTINUE TO MONITOR Q1H AND PRN.
--- NOTE | 2018-12-22 20:10 | NUR ---
PATIENT REPORTS DISCOMFORT DUE TO ANXIETY. PATIENT STATES THAT SHE HAS NOT BEEN ABLE TO REST. WILL ADMINISTER ATIVAN ORDERED BY .
[2018-12-22 22:25] VITALS: BP 147/78
[2018-12-22] MEDS: QUEtiapine FUMARATE 100 MG TAB PO SCH (22:41)
--- NOTE | 2018-12-22 23:00 | NUR ---
ROUNDS PATIENT RESTING COMFORTABLE IN BED. NO S/SX OF DISTRESS, SOB OR PAIN. PATIENT IS SLEEPING. RESPIRATION ARE EVEN AND NON LABORED. WILL CONTINUE TO MONITOR Q1H AND PRN.
[2018-12-23] MEDS: ONDANSETRON HCL 4 MG/2 ML VIAL IV PRN ×3 (01:11→13:56)
[2018-12-23] MEDS: HYDROmorphone HCL 2 MG/ML VL IV PRN ×3 (01:11→13:55)
--- NOTE | 2018-12-23 04:54 | NUR ---
USED MIDLINE TO PULL BLOOD FOR LAB WORK. 10 MLS WASTED, 10 MLS USED FOR LAB. LINE RETURN IS GOOD. PATIENT TOLERATED WELL. NO DISCOMFORT REPORTED.
[2018-12-23 05:11] VITALS: BP 128/74
[2018-12-23 05:16] LABS: Basophils # (auto) 0 uL; Basophils % (auto) 1.5 % (0.0-2.0); Eosinophils # (auto) 0.1 uL; Eosinophils % (auto) 2.9 % (0.0-7.0); Hematocrit 28.4 % (36.0-46.0); Hemoglobin 9.5 g/dL (12.2-16.2); Lymphocytes % (auto) 31.4 % (10.0-50.0); Mean Corpuscular Hemoglobin 33.2 pg (28.0-32.0); Mean Corpuscular Hgb Conc. 33.5 g/dL (32.0-36.0); Mean Corpuscular Volume 99.1 fL (80.0-100.0); Monocytes # (auto) 0.3 uL; Neutrophils # (auto) 1.7 uL; Neutrophils % (auto) 55.2 % (37.0-80.0); Platelet Count (auto) 246 10^3/uL (140-450); Red Blood Cells 2.87 10^6/uL (4.0-5.20)
[2018-12-23 05:53] LABS: Albumin 2.4 g/dL (3.4-5.0); Calcium 7.9 mg/dL (8.5-10.1); Potassium 3.5 mmol/L (3.5-5.1)
[2018-12-23 05:56] LABS: Bilirubin, Total 0.9 mg/dL (0.2-1.0); Total Protein 5.9 g/dL (6.4-8.2)
--- NOTE | 2018-12-23 06:10 | NUR ---
DILAUDID NOT DUE AT THIS TIME; PATIENT REQUESTING DILAUDID. PATIENT REPORTS PAIN 09/10. NEXT AVAILABLE DOSE PER MD ORDERS IS AT 0711
[2018-12-23 06:13] LABS: Red Cell Distribution Width 25.5 % (11.8-14.3)
--- NOTE | 2018-12-23 07:30 | NUR ---
Opening Shift Note Assumed care of patient, awake and alert. No S/S of distress/SOB or pain. Instructed on POC and to call for assist PRN, will continue to monitor for changes Q1hr and PRN. Fall precautions in place per protocol.
--- NOTE | 2018-12-23 07:46 | NUR ---
ENDORSED PATIENT CARE TO DAY SHIFT NURSE ANDREI ECHEVARRIA. NO S/SX OF DISTRESS OR SOB.
[2018-12-23 08:00] VITALS: BP 122/77
--- NOTE | 2018-12-23 10:02 | NUR ---
Hospitalist at bedside MD Leslie at bedside, aware of patient's status. New orders received for d/c. Per md Leslie patient can be d/c after 2pm today as her works in [email or web address] and is coming after that time. Will dc as ordered and new prescriptions will be given to patient.
[2018-12-23] MEDS: LINEZOLID 600MG/300ML 300 ML IV SCH (10:05)
[2018-12-23] MEDS: THIAMINE HCL 100 MG TAB PO SCH (10:06)
[2018-12-23] MEDS: VENLAFAXINE HCL 37.5MG TABLET PO SCH (10:07)
[2018-12-23] MEDS: FAMOTIDINE 20 MG TAB PO SCH (10:08)
[2018-12-23] MEDS ORDERED: LEVOFLOXACIN 750MG 150 ML IV ONE (11:45)
[2018-12-23 12:00] VITALS: BP 132/77
--- NOTE | 2018-12-23 15:10 | NUR ---
Discharge instructions given as ordered. Encourage to follow up with PMD as instructed. All questions and concerns addressed. Patient verbalized understanding. Medication reconciliation form completed and copy given to patient. Prescriptions given to patient and instructed on use,s/e, s/s and contraindication pt verbalized understanding. IV removed with catheter intact, pressure dressing applied. Telemetry unit returned to ICU. Patient refused wheelchair and states her ride should be here any minute now. Patient leaving with all personal belongings. No distress noted at time of departure.
[2018-12-24] MEDS ORDERED: LEVOFLOXACIN 750MG 150 ML IV SCH (12:00)
[2019-01-01] MEDS ORDERED: PANT40TA2 PO (15:15)
[2019-01-01] MEDS ORDERED: FLUC200T35 PO (15:15)
== END 2018-12-23 15:46 | disposition home or self-care (01) | DRG 871 ==
LOC: ER 05:35 → TELE 05:36 → TELE-EAST 18:22
PROVIDERS: ADMIT Nurse Practitioner Acute Care; ATTEND Family Medicine
DX: A41.81 Sepsis due to Enterococcus (principal); N18.6 End stage renal disease; R65.21 Severe sepsis with septic shock; E44.0 Moderate protein-calorie malnutrition; N17.9 Acute kidney failure, unspecified; E87.0 Hyperosmolality and hypernatremia; I13.2 Hypertensive heart and chronic kidney disease with heart failure and with stage 5 chronic kidney disease, or end stage renal disease; N30.01 Acute cystitis with hematuria; Z99.2 Dependence on renal dialysis; F32.9 Major depressive disorder, single episode, unspecified; E87.6 Hypokalemia; E11.22 Type 2 diabetes mellitus with diabetic chronic kidney disease; E83.42 Hypomagnesemia; I50.9 Heart failure, unspecified; J44.9 Chronic obstructive pulmonary disease, unspecified; F41.9 Anxiety disorder, unspecified; K21.9 Gastro-esophageal reflux disease without esophagitis; Z79.01 Long term (current) use of anticoagulants; Z82.3 Family history of stroke; Z82.49 Family history of ischemic heart disease and other diseases of the circulatory system; Z83.3 Family history of diabetes mellitus; Z85.3 Personal history of malignant neoplasm of breast; Z85.528 Personal history of other malignant neoplasm of kidney; Z87.01 Personal history of pneumonia (recurrent); Z87.442 Personal history of urinary calculi; Z90.5 Acquired absence of kidney; Z90.710 Acquired absence of both cervix and uterus; Z79.899 Other long term (current) drug therapy; Z90.49 Acquired absence of other specified parts of digestive tract; Z68.28 Body mass index [BMI] 28.0-28.9, adult
CPT/HCPCS: 36415; 71045; 72125; 80048; 80053; 80202; 80307; 80320; 80329; 81001; 83605; 83735; 83880; 84443; 84484; 85025; 85610; 85730; 87040; 87077; 87081; 87086; 87186; 87493; 93005; 93306; 96365; 96367; 96375; 99291; G0378; J2001; J2405; J2543; J7060

== ENCOUNTER 2018-12-26 02:14 | Inpatient (IN) | payer MEDICARE ==
[~2018-12-26] VITALS: Ht 157.5 cm; Wt 100.6 kg
[~2018-12-26 02:14] MED LIST changes: -CHL4PW PO; -ENO40SY SC; -LEVO500T21 PO; -PANT40TA2 PO; -SULF500T37 PO
[2018-12-26 03:15] LABS: Basophils # (auto) 0.1 uL; Eosinophils # (auto) 0.1 uL; Eosinophils % (auto) 1.1 % (0.0-7.0); Hematocrit 39.6 % (36.0-46.0); Hemoglobin 13.4 g/dL (12.2-16.2); Lymphocytes # (auto) 1.2 uL; Lymphocytes % (auto) 22.2 % (10.0-50.0); Mean Corpuscular Hemoglobin 33.2 pg (28.0-32.0); Mean Corpuscular Volume 97.6 fL (80.0-100.0); Monocytes # (auto) 0.2 uL; Monocytes % (auto) 4.4 % (0.0-12.0); Neutrophils # (auto) 3.8 uL; Neutrophils % (auto) 71.3 % (37.0-80.0); Nucleated Red Blood Cells % 0.1 %; Platelet Count (auto) 398 10^3/uL (140-450); Red Blood Cells 4.05 10^6/uL (4.0-5.20); White Blood Cell 5.4 10^3/uL (4.4-10.8)
[2018-12-26 03:30] LABS: Partial Thromboplastin Time 26.6 sec (23.64-32.05)
[2018-12-26 03:37] LABS: Lactic Acid w/Reflex 2.7 mmol/L (0.4-2.0)
[2018-12-26 03:38] LABS: Albumin 3.6 g/dL (3.4-5.0); BUN/Creatinine Ratio 3.3; Calcium 8.2 mg/dL (8.5-10.1)
[2018-12-26 03:40] LABS: Bilirubin, Total 1.2 mg/dL (0.2-1.0); Total Protein 8.4 g/dL (6.4-8.2)
[2018-12-26] MEDS ORDERED: ONDANSETRON ODT 4 MG TAB PO ONE (03:45)
[2018-12-26] MEDS ORDERED: SODIUM CHLORIDE 0.9% 1,000 ML IV ONE (03:45)
[2018-12-26 03:52] LABS: Potassium 2.8 mmol/L (3.5-5.1)
[2018-12-26] MEDS ORDERED: POTASSIUM CHL 20MEQ/100ML 100 ML IV ONE (04:45)
[2018-12-26] MEDS ORDERED: HYDROmorphone HCL 2 MG/ML VL IV ONE ×2 (05:45→08:00)
[2018-12-26] MEDS ORDERED: cefTRIAXone 1GM/50ML D5W 50 ML IV ONE (06:00)
[2018-12-26] MEDS ORDERED: SODIUM CHLORIDE 0.9% 2,000 ML IV ONE (07:45)
[2018-12-26] MEDS ORDERED: ONDANSETRON HCL 4 MG/2 ML VIAL IV ONE (08:00)
[2018-12-26] MEDS ORDERED: POTASSIUM EFFERVESENT TAB 25 MEQ PO ONE (11:45)
[2018-12-26] MEDS ORDERED: TEMAZEPAM 15 MG CAP PO PRN (12:45)
[2018-12-26] MEDS ORDERED: NALBUPHINE HCL 10 MG/1ml INJECTION IV PRN (12:45)
[2018-12-26] MEDS ORDERED: ALBUTEROL SULF 2.5 MG/0.5ML(0.5%) NEB SOLN NEB PRN (12:45)
[2018-12-26] MEDS ORDERED: NITROGLYCERIN 0.4 MG SL TAB SL PRN (12:45)
[2018-12-26] MEDS ORDERED: THIAMINE HCL 100 MG TAB PO ONE (13:15)
[2018-12-26] MEDS ORDERED: APIXABAN 5 MG TAB PO ONE (13:15)
[2018-12-26] MEDS ORDERED: LEVOFLOXACIN 500MG 100 ML IV ONE (13:15)
[2018-12-26] MEDS ORDERED: PANTOPRAZOLE 40 MG TAB PO ONE (13:15)
[2018-12-26] MEDS ORDERED: LINEZOLID 600MG TABLET PO ONE (13:15)
[2018-12-26] MEDS ORDERED: VENLAFAXINE HCL 25MG TABLET PO ONE (13:15)
[2018-12-26] MEDS ORDERED: QUEtiapine FUMARATE 100 MG TAB PO ONE (13:15)
[2018-12-26 13:32] LABS: CRP High Sensitivity 0.15 mg/dL (< 0.3)
[2018-12-26] MEDS: SODIUM CHLORIDE 0.9% 1,000 ML IV SCH ×2 (13:44→22:39)
[2018-12-26] MEDS: PROMETHAZINE HCL 25 MG/ML 1ML IV PRN (13:47)
[2018-12-26] MEDS: QUEtiapine FUMARATE 100 MG TAB PO SCH ×2 (13:49→13:57)
[2018-12-26 14:13] VITALS: BP 124/64
[2018-12-26 14:28] LABS: Urine Bacteria NONE SEEN /hpf (None Seen); Urine Blood Negative /uL (Negative); Urine Hyaline Cast FEW /lpf (0 - 2); Urine Mucus FEW (None Seen); Urine Specific Gravity 1.009 (1.001-1.035); Urine WBC 2 /hpf (0 - 5)
--- NOTE | 2018-12-26 15:00 | NUR ---
Received patient from ER, with NS and Levaquin running. Patient oriented to room, call light within reach and bed in locked and lowest position. Will continue to monitor.
[2018-12-26 15:05] VITALS: BP 148/85
--- NOTE | 2018-12-26 15:30 | NUR ---
Patient will have bring in list of current medications to reconcile meds
--- NOTE | 2018-12-26 16:35 | NUR ---
Paged Dr. Oviedo, patient would like Dilaudid as her pain med.
[2018-12-26 17:00] VITALS: BP 137/72
--- NOTE | 2018-12-26 17:00 | NUR ---
Talked to Dr. Oviedo, no Dilaudid for patient, carried out orders as given.
--- NOTE | 2018-12-26 17:44 | NUR ---
Paged Dr. Oviedo, patient does not want Benadryl, she becomes itchy when she takes the medication. Will request an alternative medication.
[2018-12-26] MEDS ORDERED: diphenhdrAMINE HCL 25 MG CAP PO PRN (18:30)
[2018-12-26] MEDS ORDERED: diphenhdrAMINE HCL 50 MG/1 ML VL IV PRN (18:30)
--- NOTE | 2018-12-26 19:30 | NUR ---
OPENING SHIFT NOTE ASSUMED CARE OF PATIENT. PATIENT AWAKE AND ALERT X4 WITH NO S/S OF DISTRESS/SOB. PATIENT RATES PAIN 8/10 WILL MEDICATE PRESCRIBED BY MD. FALL PRECAUTIONS IN PLACE. BED AT LOWEST LOCKED POSITION, SIDE RAILS UP X2 AND CALL LIGHT WITHIN REACH. INSTRUCTED ON POC AND TO CALL FOR ASSISTANCE PRN. WILL CONTINUE TO MONITOR FOR CHANGES Q1H AND PRN. Addendum: 12/26/18 at 2006 by Columba Canales RN PT STATED PAIN WAS 2/10.. NO PAIN MEDS GIVEN AT THIS TIME. GAVE PT A WARM PACK FOR PAIN.
[2018-12-26 21:45] VITALS: BP 141/61
[2018-12-26] MEDS: LINEZOLID 600MG TABLET PO SCH (22:00)
[2018-12-26] MEDS: NALBUPHINE HCL 10 MG/1ml INJECTION IV PRN (22:11)
[2018-12-26] MEDS: APIXABAN 5 MG TAB PO SCH (22:11)
[2018-12-27] MEDS: NALBUPHINE HCL 10 MG/1ml INJECTION IV PRN ×4 (05:23→23:12)
[2018-12-27 05:33] VITALS: BP 130/83
[2018-12-27] MEDS: SODIUM CHLORIDE 0.9% 1,000 ML IV SCH ×2 (05:35→19:26)
[2018-12-27] MEDS: PROMETHAZINE HCL 25 MG/ML 1ML IV PRN ×4 (05:36→23:12)
[2018-12-27 06:17] LABS: Albumin 2.7 g/dL (3.4-5.0); BUN/Creatinine Ratio 3.5; Bilirubin, Total 1.1 mg/dL (0.2-1.0); Calcium 7.4 mg/dL (8.5-10.1); Potassium 3.2 mmol/L (3.5-5.1); Total Protein 6.3 g/dL (6.4-8.2)
[2018-12-27 06:28] LABS: Basophils # (auto) 0.1 uL; Basophils % (auto) 0.9 % (0.0-2.0); Eosinophils # (auto) 0.2 uL; Eosinophils % (auto) 2.8 % (0.0-7.0); Hematocrit 33.2 % (36.0-46.0); Hemoglobin 10.7 g/dL (12.2-16.2); Lymphocytes # (auto) 0.9 uL; Lymphocytes % (auto) 15.4 % (10.0-50.0); Mean Corpuscular Hemoglobin 33.9 pg (28.0-32.0); Mean Corpuscular Hgb Conc. 32.3 g/dL (32.0-36.0); Mean Corpuscular Volume 104.7 fL (80.0-100.0); Monocytes # (auto) 0.3 uL; Monocytes % (auto) 5.2 % (0.0-12.0); Neutrophils # (auto) 4.4 uL; Neutrophils % (auto) 75.7 % (37.0-80.0); Platelet Count (auto) 289 10^3/uL (140-450); Red Blood Cells 3.17 10^6/uL (4.0-5.20); White Blood Cell 5.8 10^3/uL (4.4-10.8)
[2018-12-27 06:30] LABS: Red Cell Distribution Width 25.3 % (11.8-14.3)
--- NOTE | 2018-12-27 08:00 | NUR ---
Opening Shift Note Assumed care of patient, awake, alert and oriented X4. No S/S of distress/SOB or pain. Tele# 77, sinus rhythm @ 87 bpm. IV to left forearm, 22 gauge, patent and infusing 0.9% NS @ 100 ml/hr. Instructed on POC and to call for assist PRN, verbalized understanding. Bed locked, in lowest position, call light within reach, will continue to monitor for changes Q1hr and PRN.
[2018-12-27 09:20] VITALS: BP 120/72
[2018-12-27] MEDS: LEVOFLOXACIN 500MG 100 ML IV SCH (09:37)
[2018-12-27] MEDS: PANTOPRAZOLE 40 MG TAB PO SCH (09:55)
[2018-12-27] MEDS: THIAMINE HCL 100 MG TAB PO SCH (09:55)
[2018-12-27] MEDS: APIXABAN 5 MG TAB PO SCH ×2 (09:56→21:20)
[2018-12-27] MEDS: FOLIC ACID PYRIDOXINE CYANCOBA PO SCH (09:57)
[2018-12-27] MEDS: VENLAFAXINE HCL 25MG TABLET PO SCH (10:04)
[2018-12-27] MEDS: LINEZOLID 600MG TABLET PO SCH ×2 (10:04→21:21)
[2018-12-27 14:24] VITALS: BP 133/67
--- NOTE | 2018-12-27 15:23 | NUR ---
ASSESSED PT FOR THE REQUIREMENT OF MED NEB PRN TX. PT ON RA WITH CLEAR BS, SPO2 99%, HR 91, RR 15. NO DISTRESS NOTED. MED NEB NOT INDICATED. WILL CONTINUE TO MONITOR PT.
[2018-12-27] MEDS ORDERED: POTASSIUM CHL 20MEQ/100ML 100 ML IV ONE (17:00)
--- NOTE | 2018-12-27 17:03 | NUR ---
ROUNDS Dr Garcia at bedside for rounds, new orders received and followed through. Patient updated on plan of care, verbalized understanding.
[2018-12-27 17:09] VITALS: BP 125/68
--- NOTE | 2018-12-27 19:31 | NUR ---
Care endorsed to ANDRIE Waterman, night nurse.
--- NOTE | 2018-12-27 20:00 | NUR ---
Respiratory note: PT ASSESSED FOR PRN MED NEB TX. HR 78, RR 14, SPO2 96% ON R/A. NO SIGNS OF ANY RESPIRATORY DISTRESS NOTED. ADVISED PT TO CALL IF TX IS NEEDED. RT NAME AND PAGER NUMBER WRITTEN ON PT'S BOARD.
[2018-12-27] MEDS: QUEtiapine FUMARATE 100 MG TAB PO SCH (21:21)
[2018-12-27 22:00] VITALS: BP 124/73
[2018-12-27 22:18] VITALS: BP 124/73
[2018-12-28 05:00] VITALS: BP 111/68
[2018-12-28 05:28] VITALS: BP 111/68
[2018-12-28] MEDS: SODIUM CHLORIDE 0.9% 1,000 ML IV SCH ×2 (06:33→19:00)
--- NOTE | 2018-12-28 08:00 | NUR ---
Opening Shift Note Assumed care of patient, awake, alert and oriented X4. No S/S of distress/SOB, complains of generalized pain, 8/10, medicated with prescribed pain medication. Tele# 77, sinus rhythm @ 96 bpm. IV to left forearm, 22 gauge, patent and infusing 0.9% NS @ 100 ml/hr. Instructed on POC and to call for assist PRN, verbalized understanding. Bed locked, in lowest position, call light within reach, will continue to monitor for changes Q1hr and PRN.
[2018-12-28] MEDS: NALBUPHINE HCL 10 MG/1ml INJECTION IV PRN ×3 (08:18→22:50)
[2018-12-28] MEDS: PROMETHAZINE HCL 25 MG/ML 1ML IV PRN ×3 (08:19→22:50)
[2018-12-28 09:39] VITALS: BP 129/68
[2018-12-28] MEDS: FOLIC ACID PYRIDOXINE CYANCOBA PO SCH (10:00)
--- NOTE | 2018-12-28 10:00 | NUR ---
Respiratory note: PATIENT ASSESSED FOR PRN MED-NEB TX. MED-NEB NOT INDICATED AT THIS TIME PATIENT IS IN NO ACUTE RESPIRATORY DISTRESS AND DENIES NEED. PATIENT INSTRUCTED TO CALL FOR RT IF SHE FELT THE NEED FOR TX AT A LATER TIME. SPO2 96% R/A
--- NOTE | 2018-12-28 11:15 | NUR ---
IV removal IV DC'd to left upper arm due to swelling, with clean technique, catheter fully intact. Pressure dressing applied to site. Patient tolerated procedure well.
[2018-12-28] MEDS: APIXABAN 5 MG TAB PO SCH ×2 (11:53→21:59)
[2018-12-28] MEDS: THIAMINE HCL 100 MG TAB PO SCH (11:53)
[2018-12-28] MEDS: VENLAFAXINE HCL 25MG TABLET PO SCH (11:53)
[2018-12-28] MEDS: PANTOPRAZOLE 40 MG TAB PO SCH (11:53)
[2018-12-28] MEDS: LINEZOLID 600MG TABLET PO SCH ×2 (11:56→21:59)
[2018-12-28 13:00] VITALS: BP 132/84
--- NOTE | 2018-12-28 15:26 | NUR ---
NUTRITION CONSULT/ASSESSMENT NOTES Please refer to link notes of nutrition screen form filed under the intervention section of the plan of care for further details. Est. Needs: 1350 kcal to 1700 kcal (20-25 kcal/kgBW), 55 gms to 69 gms pro (0.8-1.0 gms/kgBW). Will continue to monitor pertinent labs and reassess nutrient need prn Thank you for this consult. Addendum: 12/28/18 at [address] Amended: Links added.
[2018-12-28] MEDS: LORazepam 0.5 MG TAB PO PRN (15:44)
[2018-12-28 17:00] VITALS: BP 132/86
[2018-12-28] MEDS: LEVOFLOXACIN 500MG 100 ML IV SCH (17:03)
--- NOTE | 2018-12-28 17:04 | NUR ---
IV insertion IV access obtained via clean technique by inserting 24 gauge catheter at the right outer wrist by Raffi RN, charge nurse. IV secured properly. No trauma to site. Patient tolerated procedure well.
[2018-12-28 19:11] LABS: Basophils # (auto) 0 uL; Basophils % (auto) 0.5 % (0.0-2.0); Eosinophils # (auto) 0.3 uL; Hematocrit 34.1 % (36.0-46.0); Hemoglobin 11.3 g/dL (12.2-16.2); Lymphocytes # (auto) 0.8 uL; Lymphocytes % (auto) 9.4 % (10.0-50.0); Mean Corpuscular Hemoglobin 32.9 pg (28.0-32.0); Mean Corpuscular Hgb Conc. 33.1 g/dL (32.0-36.0); Mean Corpuscular Volume 99.3 fL (80.0-100.0); Monocytes # (auto) 0.3 uL; Monocytes % (auto) 3.2 % (0.0-12.0); Neutrophils # (auto) 6.9 uL; Neutrophils % (auto) 83.9 % (37.0-80.0); Platelet Count (auto) 285 10^3/uL (140-450); Red Blood Cells 3.43 10^6/uL (4.0-5.20); White Blood Cell 8.3 10^3/uL (4.4-10.8)
--- NOTE | 2018-12-28 19:12 | NUR ---
Care endorsed to ANDREI Deng, night nurse.
[2018-12-28 19:17] LABS: Red Cell Distribution Width 24.6 % (11.8-14.3)
--- NOTE | 2018-12-28 19:27 | NUR ---
CRITICAL LAB RECEIVED Potassium critical level 2.9. Mundo cortes hospitalist.
--- NOTE | 2018-12-28 19:40 | NUR ---
Hospitalist called back New orders received for 50 mEq Potassium Effervescent one time. Draw BMP and Magnesium if not previously ordered. Will carry out and continue to monitor patient.
--- NOTE | 2018-12-28 19:42 | NUR ---
IV removal from right wrist by patient. IV DC'd with clean sterile technique, catheter fully intact. Pressure dressing applied to site. Patient tolerated well.
--- NOTE | 2018-12-28 20:20 | NUR ---
Respiratory note: PT ASSESSED FOR PRN MED NEB TX. HR 99, RR 18, SPO2 97% ON RA. NO SIGNS OF ANY RESPIRATORY DISTRESS NOTED. ADVISED PT TO CALL IF TX IS NEEDED. RT NAME AND PAGER NUMBER WRITTEN ON PT'S BOARD.
--- NOTE | 2018-12-28 20:36 | NUR ---
IV insertion IV access obtained, via clean sterile technique by inserting 22 gauge catheter at the left wrist after 2 attempt(s). IV secured properly. No trauma to site. Patient tolerated well.
[2018-12-28] MEDS ORDERED: POTASSIUM EFFERVESENT TAB 25 MEQ PO ONE (21:00)
[2018-12-28] MEDS: QUEtiapine FUMARATE 100 MG TAB PO SCH (21:59)
[2018-12-28 22:00] VITALS: BP 143/79
[2018-12-29] MEDS: SODIUM CHLORIDE 0.9% 1,000 ML IV SCH ×3 (03:35→13:41)
[2018-12-29 05:00] VITALS: BP 125/67
[2018-12-29] MEDS: PROMETHAZINE HCL 25 MG/ML 1ML IV PRN ×2 (05:39→15:54)
[2018-12-29] MEDS: NALBUPHINE HCL 10 MG/1ml INJECTION IV PRN ×3 (05:40→21:12)
--- NOTE | 2018-12-29 06:38 | NUR ---
Respiratory note: HR 93, RR 16, SPO2 96% BS CLEAR AND DIMINISHED. PRN MED NEB TX NOT INDICATED. NO SIGNS OR SYMPTOMS OF RESPIRATORY DISTRESS NOTED AT THIS TIME.PT INFORMED TO HIT CALL BUTTON IF FEELING SOB OR WHEEZING.
--- NOTE | 2018-12-29 06:51 | NUR ---
Closing Note Patient is resting in bed. No complaints of pain, SOB, or distress. Call light is within reach. Will endorse to dayshift RN.
--- NOTE | 2018-12-29 08:00 | NUR ---
Opening Shift Note Assumed care of patient, awake and alert, oriented x 4 and verbally responsive. Respiratory even and unlabored. No S/S of distress/SOB or pain. Skin is warm and dry to touch. Instructed on POC and to call for assist PRN, will continue to monitor for changes Q1hr and PRN.
[2018-12-29 08:07] LABS: BUN/Creatinine Ratio 1.8
[2018-12-29 08:49] VITALS: BP 121/67
[2018-12-29] MEDS: LORazepam 0.5 MG TAB PO PRN ×2 (08:56→21:12)
[2018-12-29 09:02] VITALS: BP 121/67
[2018-12-29] MEDS: FOLIC ACID PYRIDOXINE CYANCOBA PO SCH (10:00)
[2018-12-29] MEDS: APIXABAN 5 MG TAB PO SCH (10:00)
[2018-12-29] MEDS: THIAMINE HCL 100 MG TAB PO SCH (10:24)
[2018-12-29] MEDS: VENLAFAXINE HCL 25MG TABLET PO SCH (10:24)
[2018-12-29] MEDS: PANTOPRAZOLE 40 MG TAB PO SCH ×2 (10:24→21:33)
[2018-12-29] MEDS: LEVOFLOXACIN 500MG 100 ML IV SCH (10:25)
[2018-12-29] MEDS ORDERED: POTASSIUM CHL 20 Meq TABLET PO ONE (12:00)
[2018-12-29] MEDS: MAGNESIUM SULFATE 1GM/100ML 100 ML IV SCH ×4 (12:00→18:58)
[2018-12-29 12:30] VITALS: BP 150/80
--- NOTE | 2018-12-29 16:00 | NUR ---
Assessment Pt is a 58 yr old alert and oriented female. prior to admit, pt lived with her Liane, who is her emergency contact at [phone]. Pt was a recent admit for sepsis and stated that the infection is not totally gone and she came back due to that. Pt is independent with ADL's and pt's sister is currently a caregiver for cooking and cleaning. pt receives SSI and early snf income. Pt stated that she has an AD on file. Pt does not need help with transport currently. Pt stated that she has no needs at this time. Pt to d/c home upon medical clearance.
[2018-12-29 16:49] VITALS: BP 146/80
--- NOTE | 2018-12-29 19:00 | NUR ---
Opening Shift Note Assumed care of patient, awake and alert. No S/S of distress/SOB or pain. Instructed on POC and to call for assist PRN, will continue to monitor for changes Q1hr and PRN.
[2018-12-29] MEDS: LINEZOLID 600MG/300ML 300 ML IV SCH (21:33)
[2018-12-29] MEDS: QUEtiapine FUMARATE 100 MG TAB PO SCH (21:33)
[2018-12-29 22:00] VITALS: BP 120/67
--- NOTE | 2018-12-29 22:25 | NUR ---
Respiratory note: NO PRN TX GIVEN AT THIS TIME, NOT INDICATED, NO SOB NOTED. SPO2 95% ON RA, HR 86, RR 18.
[2018-12-30] MEDS: SODIUM CHLORIDE 0.9% 1,000 ML IV SCH ×2 (02:25→16:04)
[2018-12-30] MEDS: NALBUPHINE HCL 10 MG/1ml INJECTION IV PRN ×4 (03:16→22:37)
[2018-12-30] MEDS: PROMETHAZINE HCL 25 MG/ML 1ML IV PRN ×4 (03:16→22:37)
[2018-12-30 04:46] VITALS: BP 89/48
--- NOTE | 2018-12-30 05:00 | NUR ---
Hospitalist paged: Hospitalist paged d/t patient having a low blood pressure of 90/57.
--- NOTE | 2018-12-30 05:50 | NUR ---
Hospitalist returned page: Hospitalist returned page and updated on patient condition and blood pressure. New orders received and verified.
[2018-12-30] MEDS ORDERED: SODIUM CHLORIDE 0.9% 500 ML IV ONE (06:00)
--- NOTE | 2018-12-30 06:20 | NUR ---
Patient's blood pressure assessed and noted to be trending up. BP was 94/51 with a HR of 78. RN will continue to monitor.
--- NOTE | 2018-12-30 08:00 | NUR ---
OPENING SHIFT NOTE ASSUMED CARE OF PATIENT. PATIENT IS AWAKE AND ALERT. NO SOB OR SIGNS OF DISTRESS NOTED. INSTRUCTED ON POC AND TO CALL FOR HELP PRN. BED IN LOWEST POSITION WITH SIDE RAILS UP X2. WILL CONTINUE TO MONITOR Q1HR.
[2018-12-30 09:00] VITALS: BP 115/61
[2018-12-30] MEDS: FOLIC ACID PYRIDOXINE CYANCOBA PO SCH (10:00)
[2018-12-30] MEDS: LEVOFLOXACIN 500MG 100 ML IV SCH (10:24)
[2018-12-30] MEDS: LINEZOLID 600MG/300ML 300 ML IV SCH ×2 (10:24→21:30)
[2018-12-30] MEDS: PANTOPRAZOLE 40 MG TAB PO SCH ×2 (10:25→21:30)
[2018-12-30] MEDS: LORazepam 0.5 MG TAB PO PRN (10:25)
[2018-12-30] MEDS: VENLAFAXINE HCL 37.5mg XR cap PO SCH (10:25)
[2018-12-30] MEDS: THIAMINE HCL 100 MG TAB PO SCH (10:25)
--- NOTE | 2018-12-30 11:05 | NUR ---
Nutrition Follow-up Notes Wt.: 71.7 kg Pt was sleeping with no family by bedside. per records pt with resolving ileus. pt with no distress noted. pt is currently on clear liq diet with no PO recorded yet. pt to have colonoscopy 01/01 per records Est. Needs: 1350 kcal to 1700 kcal (20-25 kcal/kgBW), 55 gms to 69 gms pro (0.8-1.0 gms/kgBW). Will continue to monitor pertinent labs and reassess nutrient need prn Labs: CREAT 1.09 H, ALB 2.7 L, CA 7.0 L. Skin: Kamron scale 21 low risk skin intact per RN doc GI: Pt's had 2 BM today per raw material planner. PES: Increased nutrient needs r/t Chronic/current medical/nutritional status aeb SEPTICEMIA NOS,Chronic abdominal pain,Hypokalemia,on Clear Liquid diet Altered nutrition related lab values r/t current/chronic medical condition aeb hypokalemia, low renal labs, hyperchloremia, hypocalcemia,hyperbilirubinemia and mod hypoalbuminemia Will continue to monitor PO intake, skin status, pertinent labs and weight trend. F/u in 2 to 3 days. Rec.: 1.) Advance gradually oral diet when medically appropriate. 2.) If Albumin level continues trending down, consider Prostat 1 pkt BID. 3.) Continue close supervision and feeding assistance prn during meals 4.) Refer to RD for further nutrition education and weight monitoring upon discharged. 5.) Continue current plan of care.
[2018-12-30] MEDS ORDERED: FLUCONAZOLE 200MG/100ML 100 ML IV ONE (12:15)
[2018-12-30 13:00] VITALS: BP 125/78
[2018-12-30 13:11] LABS: Magnesium 1.6 mg/dL (1.6-2.6); Potassium 4.1 mmol/L (3.5-5.1)
[2018-12-30 17:00] VITALS: BP 145/78
--- NOTE | 2018-12-30 18:00 | NUR ---
IV STOPPED INFUSING. SWELLING NOTED TO UPPER ARM. PAGED MIDLINE NURSE. RECEIVED TO CALLBACK. WILL NOTIFY NIGHT NURSE.
[2018-12-30] MEDS: QUEtiapine FUMARATE 100 MG TAB PO SCH (21:30)
[2018-12-30 21:48] VITALS: BP 125/83
[2018-12-31 04:44] VITALS: BP 108/69
[2018-12-31] MEDS: PROMETHAZINE HCL 25 MG/ML 1ML IV PRN ×5 (05:39→23:58)
[2018-12-31] MEDS: NALBUPHINE HCL 10 MG/1ml INJECTION IV PRN ×4 (05:39→18:27)
[2018-12-31 06:43] LABS: Hematocrit 30.4 % (36.0-46.0)
[2018-12-31 06:48] LABS: BUN/Creatinine Ratio 2.7; Calcium 7.6 mg/dL (8.5-10.1); Magnesium 1.4 mg/dL (1.6-2.6)
[2018-12-31 06:50] LABS: Potassium 2.8 mmol/L (3.5-5.1)
--- NOTE | 2018-12-31 06:53 | NUR ---
Hospitalist paged: RN informed by roving tester laboratory yumiko of critical potassium of 2.8.
[2018-12-31] MEDS: SODIUM CHLORIDE 0.9% 1,000 ML IV SCH ×2 (06:54→20:59)
--- NOTE | 2018-12-31 06:59 | NUR ---
Hospitalist returned page and updated on patient critical lab. New order received and verified.
[2018-12-31] MEDS ORDERED: POTASSIUM CHL 20 Meq TABLET PO ONE ×3 (07:00→20:30)
--- NOTE | 2018-12-31 08:00 | NUR ---
Received pt resting in bed, call light within reach, pt reports mild abdominal pain 4/10, pt was given pain medication, will continue to monitor pt.
[2018-12-31] MEDS: FLUCONAZOLE 200MG/100ML 100 ML IV SCH (08:41)
[2018-12-31 09:00] VITALS: BP 128/68
[2018-12-31] MEDS: FOLIC ACID PYRIDOXINE CYANCOBA PO SCH (10:00)
[2018-12-31] MEDS: LINEZOLID 600MG/300ML 300 ML IV SCH ×2 (10:14→21:38)
[2018-12-31] MEDS: PANTOPRAZOLE 40 MG TAB PO SCH ×2 (10:14→21:38)
[2018-12-31] MEDS: LEVOFLOXACIN 500MG 100 ML IV SCH (10:14)
[2018-12-31] MEDS: THIAMINE HCL 100 MG TAB PO SCH (10:15)
[2018-12-31] MEDS: VENLAFAXINE HCL 37.5mg XR cap PO SCH (10:17)
--- NOTE | 2018-12-31 10:35 | NUR ---
Dr. Ramirez at bed side to see pt, doctor discussed the plan of care with pt.
[2018-12-31] MEDS ORDERED: GOLYTELY 4L KIT PO ONE (12:00)
[2018-12-31] MEDS: MAGNESIUM SULFATE 1GM/100ML 100 ML IV SCH ×2 (12:39→15:35)
[2018-12-31 13:00] VITALS: BP 129/68
[2018-12-31 17:00] VITALS: BP 132/73
[2018-12-31 18:01] LABS: Potassium 3.2 mmol/L (3.5-5.1)
[2018-12-31 18:03] LABS: Magnesium 1.8 mg/dL (1.6-2.6)
[2018-12-31] MEDS: LORazepam 0.5 MG TAB PO PRN (18:27)
--- NOTE | 2018-12-31 20:00 | NUR ---
Hospitalist paged: Hospitalist paged d/t patient having a critical potassium this morning and already have been given a total of 60meq of potassium. Patient's blood redraw shows potassium to still be low at 3.2 and patient is now on a laxative and having many watery stools in prep for tomorrow's procedure.
--- NOTE | 2018-12-31 20:27 | NUR ---
Hospitalist returned page and updated on patients condition. New orders received and updated.
[2018-12-31 21:38] VITALS: BP 133/70
[2018-12-31] MEDS: QUEtiapine FUMARATE 100 MG TAB PO SCH (21:38)
[2019-01-01 05:00] VITALS: BP 102/56
[2019-01-01] MEDS: PROMETHAZINE HCL 25 MG/ML 1ML IV PRN ×2 (05:18→12:00)
[2019-01-01 05:51] LABS: Hematocrit 30.5 % (36.0-46.0); Hemoglobin 10.4 g/dL (12.2-16.2)
[2019-01-01 06:10] LABS: Potassium 3.4 mmol/L (3.5-5.1)
[2019-01-01 06:13] LABS: Calcium 7.7 mg/dL (8.5-10.1)
[2019-01-01] MEDS: FLUCONAZOLE 200MG/100ML 100 ML IV SCH (08:28)
[2019-01-01] MEDS: NALBUPHINE HCL 10 MG/1ml INJECTION IV PRN ×2 (08:41→13:54)
[2019-01-01 09:00] VITALS: BP 106/57
--- NOTE | 2019-01-01 09:19 | NUR ---
CXR ORDERED (PRE-OP) FOR PROCEDURE PROTOCOL. RADIOLOGY DEPT. MADE AWARE OF STAT ORDER.
--- NOTE | 2019-01-01 09:59 | NUR ---
PT TRANSPORTED TO PRE-OP AREA, VIA BED. NO S/S OF DISTRESS AT MOMENT.
[2019-01-01] MEDS: FOLIC ACID PYRIDOXINE CYANCOBA PO SCH (10:00)
[2019-01-01] MEDS ORDERED: MIDAZOLAM HCL 1MG/1ML-2 ML VIAL ONE (10:32)
[2019-01-01] MEDS ORDERED: PROPOFOL 10 MG/ML 20 ML IV ONE (10:32)
[2019-01-01] MEDS ORDERED: LIDOCAINE 2% (LOCAL ANESTH.) PF 5ml SDV ONE (10:32)
[2019-01-01] MEDS ORDERED: METOCLOPRAMIDE HCL 5MG/ml INJ 2ml VIAL ONE (10:36)
[2019-01-01] MEDS ORDERED: GLYCOPYRROLATE 0.2 MG/ML 1ML VIAL ONE (10:36)
[2019-01-01] MEDS ORDERED: ePHEDrine SULFATE 50 MG/ML AMP ONE (10:53)
[2019-01-01] MEDS ORDERED: SODIUM CHLORIDE LOCK 10 ML ONE (10:53)
[2019-01-01] MEDS ORDERED: NALOXONE HCL 0.4 MG/ML VIAL IV PRN (11:15)
[2019-01-01] MEDS ORDERED: HYDROmorphone HCL 2 MG/ML VL IV PRN (11:15)
[2019-01-01] MEDS ORDERED: ONDANSETRON HCL 4 MG/2 ML VIAL IV PRN (11:15)
[2019-01-01] MEDS ORDERED: HYOSCYAMINE SULF 0.125 MG ODT TAB PO PRN (11:15)
--- NOTE | 2019-01-01 11:19 | NUR ---
Nutrition Follow-up Notes Wt.: 71.7 kg Pt was off the floor to EGD/colonoscopy when rounded this am. pt with possible ileus, with no distress noted. pt was NPO when rounded now advanced to CCHO 60 gm renal std diet with no PO recorded yet Est. Needs: 1350 kcal to 1700 kcal (20-25 kcal/kgBW), 55 gms to 69 gms pro (0.8-1.0 gms/kgBW). Will continue to monitor pertinent labs and reassess nutrient need prn Labs: CA 7.7 L Skin: Kamron scale 21 low risk skin intact per RN doc GI: Pt's had 2 BM today per [employer]. PES: Increased nutrient needs r/t Chronic/current medical/nutritional status aeb SEPTICEMIA NOS,Chronic abdominal pain,Hypokalemia,on Clear Liquid diet Altered nutrition related lab values r/t current/chronic medical condition aeb hypokalemia, low renal labs, hyperchloremia, hypocalcemia,hyperbilirubinemia and mod hypoalbuminemia Will continue to monitor PO intake, skin status, pertinent labs and weight trend. F/u in 3-5 days. Rec.: 1.) Consider 2 gm na diet if pt not on HD and pt is not DM per records . 2.) If Albumin level continues trending down, consider Prostat 1 pkt BID. 3.) Continue close supervision and feeding assistance prn during meals 4.) Refer to RD for further nutrition education and weight monitoring upon discharged. 5.) Continue current plan of care.
[2019-01-01] MEDS: SODIUM CHLORIDE 0.9% 1,000 ML IV SCH (11:30)
--- NOTE | 2019-01-01 11:45 | NUR ---
PT BACK FROM GI LAB. PT AWAKE, ALERT, ORIENTEDx4 DENIES ANY DISCOMFORT AT MOMENT. REPORTS NAUSEA, WILL MEDICATE PER EMAR. EFFORTLESS BREATHING ON ROOM AIR. BED IN LOWEST POSITION, CALL LIGHT WITHIN REACH. WILL CONTINUE TO MONITOR.
[2019-01-01] MEDS: THIAMINE HCL 100 MG TAB PO SCH (11:58)
[2019-01-01] MEDS: PANTOPRAZOLE 40 MG TAB PO SCH (11:58)
[2019-01-01] MEDS: LINEZOLID 600MG/300ML 300 ML IV SCH (11:58)
[2019-01-01] MEDS: LEVOFLOXACIN 500MG 100 ML IV SCH (13:58)
[2019-01-01] MEDS ORDERED: POTASSIUM CHL 20 Meq TABLET PO ONE (15:15)
[2019-01-01] MEDS ORDERED: PANT40TA2 PO (15:15)
[2019-01-01] MEDS ORDERED: FLUC200T35 PO (15:15)
[2019-01-01] MEDS: LORazepam 0.5 MG TAB PO PRN (16:32)
[2019-01-01 17:25] VITALS: BP 128/69
[2019-01-01 17:55] VITALS: BP 128/69
--- NOTE | 2019-01-01 18:43 | NUR ---
DISCHARGE INSTRUCTIONS PROVIDED TO PT. PT VERBALIZED UNDERSTANDING FOR CONTINUATION OF HOME MEDICATIONS AND RESUMPTION OF ELIQUIS ON 01/02/19. PT INSTRUCTED ON FOLLOW UP APPOINTMENT WITH PRIMARY CARE PROVIDER AND GASTROENTEROLOGY FOR BIOPSY RESULTS. EDUCATIONAL MATERIAL PROVIDED TO PT, ALL QUESTIONS AND CONCERNS ADDRESSED. IV CATHETER DC'D, NO PHLEBITIS, CATHETER INTACT, NO ACTIVE BLEEDING PRESENT. TELE BOX REMOVED AND RETURNED TO TELE DEPT. PT SAFELY ESCORTED OUT OF UNIT, ACCOMPANIED BY SPOUSE.
== END 2019-01-01 18:40 | disposition home or self-care (01) | DRG 377 ==
LOC: ER 02:17 → TELE 02:18 → TELE-WESTW 17:22
PROVIDERS: ADMIT Internal Medicine; ATTEND Internal Medicine
PROC: 0DB68ZX Excision of Stomach, Via Natural or Artificial Opening Endoscopic, Diagnostic (ICD-10-PCS; principal; 2019-01-01 10:23)
PROC: 0DJD8ZZ Inspection of Lower Intestinal Tract, Via Natural or Artificial Opening Endoscopic (ICD-10-PCS; 2019-01-01 10:23)
DX: K29.71 Gastritis, unspecified, with bleeding (principal); N18.6 End stage renal disease; N17.0 Acute kidney failure with tubular necrosis; B37.49 Other urogenital candidiasis; E46 Unspecified protein-calorie malnutrition; K56.7 Ileus, unspecified; I13.2 Hypertensive heart and chronic kidney disease with heart failure and with stage 5 chronic kidney disease, or end stage renal disease; F11.20 Opioid dependence, uncomplicated; Z68.41 Body mass index [BMI] 40.0-44.9, adult; E87.2 Acidosis; I50.9 Heart failure, unspecified; D64.9 Anemia, unspecified; E03.9 Hypothyroidism, unspecified; E66.01 Morbid (severe) obesity due to excess calories; E11.22 Type 2 diabetes mellitus with diabetic chronic kidney disease; G89.29 Other chronic pain; J44.9 Chronic obstructive pulmonary disease, unspecified; F32.9 Major depressive disorder, single episode, unspecified; F41.9 Anxiety disorder, unspecified; E87.6 Hypokalemia; K21.9 Gastro-esophageal reflux disease without esophagitis; I25.10 Atherosclerotic heart disease of native coronary artery without angina pectoris; M19.90 Unspecified osteoarthritis, unspecified site; G40.909 Epilepsy, unspecified, not intractable, without status epilepticus; Z82.3 Family history of stroke; Z88.1 Allergy status to other antibiotic agents; Z88.5 Allergy status to narcotic agent; Z88.2 Allergy status to sulfonamides; Z88.8 Allergy status to other drugs, medicaments and biological substances; Z82.49 Family history of ischemic heart disease and other diseases of the circulatory system; Z85.528 Personal history of other malignant neoplasm of kidney; Z86.718 Personal history of other venous thrombosis and embolism; Z87.442 Personal history of urinary calculi; Z87.891 Personal history of nicotine dependence; Z90.5 Acquired absence of kidney; Z90.710 Acquired absence of both cervix and uterus; Z98.84 Bariatric surgery status; Z99.2 Dependence on renal dialysis; Z90.49 Acquired absence of other specified parts of digestive tract
CPT/HCPCS: 36415; 43239; 45378; 71045; 71250; 74176; 80048; 80053; 81001; 82150; 82270; 82607; 83605; 83690; 83735; 84132; 85014; 85018; 85025; 85610; 85652; 85730; 86141; 87040; 87070; 87081; 87086; 87088; 87205; 87493; 93005; 93306; 94761; 96361; 96365; 96367; 96375; 96376; 99291; G0378; J0696; J1450; J1956; J2001; J2250; J2405; J2704; J3480; Q0162